=== PATIENT | female | born 1940 | race African-American/Black ===

== ENCOUNTER → 2019-11-24 | Outpatient (CLI) | payer MEDICARE, MEDICAID ==
[~2019-11-24] VITALS: Ht 162.6 cm; Wt 74.5 kg
[~2019-11-24] MED LIST: LIDOCAINE 1% INJ 20 ML 20 ML VIAL INJ ONE; LIDOCAINE 1% INJ 20 ML 20 ML VIAL ONE
--- NOTE | 2019-11-24 18:38 | Diagnostic Imaging Report ---
INDICATION: Left breast calcifications. EXAMINATION: Patient presents for stereotactic biopsy. PROCEDURE: Patient was brought to the stereotactic suite and placed in a chair in a sitting upright position. The left breast was positioned craniocaudal. The calcifications in the upper central left breast were stereotactically targeted. The skin of the left breast was prepped and draped in the usual sterile fashion. A small amount of 1% lidocaine was utilized for local anesthesia. An 8-gauge stereotactic needle was advanced and placed per stereotactic coordinates. Four core biopsies were obtained with the vacuum-assisted device. Specimen radiograph was obtained demonstrating numerous calcifications within samples 1, 2, 3 and 4. The marker clip was then deployed. Needle was withdrawn and hemostasis was obtained. 2D CC and MLO mammography was performed demonstrating a marker clip in the upper central left breast. All images were viewed on a dedicated workstation. IMPRESSION: Successful stereotactic biopsy of left breast calcifications utilizing a vacuum-assisted device. Pathology results are currently pending. Dictated by: Dictated on workstation # [id number]
== END ==
LOC: RAD 09:49
PROVIDERS: ATTEND Surgery
DX: R92.1 Mammographic calcification found on diagnostic imaging of breast (principal)
CPT/HCPCS: 19081

== ENCOUNTER 2022-05-12 09:58 | Emergency (ER) | payer MEDICARE, MEDICAID ==
[~2022-05-12] VITALS: Ht 162 cm; Wt 63.0 kg
[2022-05-12 10:12] LABS: BASOPHILS % (AUTO) 1 % (0-10); EOSINOPHILS # (AUTO) 0.1 10^3/uL (0.0-0.3); EOSINOPHILS % (AUTO) 2 % (0-10); HEMATOCRIT 38 % (35-52); HEMOGLOBIN 12.2 g/dL (11.5-16.0); LYMPHOCYTES # (AUTO) 1.2 10^3/uL (1.0-4.0); LYMPHOCYTES % (AUTO) 19 % (12-44); MEAN CORPUSCULAR HEMOGLOBIN 27 pg (25-34); MEAN CORPUSCULAR HGB CONC 32 g/dL (32-36); MEAN CORPUSCULAR VOLUME 82 fL (80-99); MEAN PLATELET VOLUME 11.2 fL (9.0-12.2); MONOCYTES # (AUTO) 1.1 10^3/uL (0.0-1.0); MONOCYTES % (AUTO) 18 % (0-12); NEUTROPHILS # (AUTO) 3.8 10^3/uL (1.8-7.8); NEUTROPHILS % (AUTO) 60 % (42-75); PLATELET COUNT 179 10^3/uL (130-400); WHITE BLOOD COUNT 6.2 10^3/uL (4.3-11.0)
[2022-05-12 10:36] LABS: BILIRUBIN,TOTAL 0.4 MG/DL (0.1-1.0); CALCIUM 9.1 MG/DL (8.5-10.1); CREATININE SERUM 0.98 MG/DL (0.60-1.30); POTASSIUM 3.6 MMOL/L (3.6-5.0); TOTAL PROTEIN 7.3 GM/DL (6.4-8.2)
[2022-05-12 10:37] LABS: ALBUMIN 3.9 GM/DL (3.2-4.5)
[2022-05-12 10:46] VITALS: BP 160/68
[2022-05-12 10:58] LABS: BAND NEUTROPHILS 2 %; BASOPHILS % (MANUAL) 0 %; EOSINOPHILS % (MANUAL) 0 %; LYMPHOCYTES % (MANUAL) 19 %; MONOCYTES % (MANUAL) 18 %; NEUTROPHILS % (MANUAL) 61 %
--- NOTE | 2022-05-12 11:00 | ED General ---
General Chief Complaint: Glucose Problems Stated Complaint: HYPOGLYCEMIA Nursing Triage Note: Patient has been brought to ER by EMS with cc of low blood sugar. Per EMS blood sugar was 19 at home. Patient transported to ER for evaluation. Source of Information: Patient, Family History of Present Illness Date Seen by Provider: May 12, 2022 Time Seen by Provider: 09:58 Initial Comments 81-year-old female presenting with complaints of decreased responsiveness this morning. EMS was activated and found her to have a low blood sugar of 19 when they arrived. She was given an amp of D50 and sugar was brought up to the 160s. She was alert and responsive at that time. She initially told EMS that she took too much insulin last night. However after family arrived at the reported that she does not take insulin and had not eaten her supper last night. She has high blood pressure and takes medicine for that. They were unsure of her other medications. They also stated that she would need a note for work as she had been seen in the ER and her employer wanted her off for a week to give her a ch ance to recuperate. Patient denies having fever, chills, cough, pain with urination, diarrhea, nausea, vomiting, chest pain, headache. Severity: Severe Modifying Factors: improves with Medication (Amp of D50 corrected her sugar and became alert and responsive) Associated Systoms: No Chest Pain, No Cough, No Diaphoresis, No Fever/Chills, No Headaches; Loss of Appetite; No Malaise, No Nausea/Vomiting, No Rash, No Seizure, No Shortness of Air, No Syncope, No Weakness Allergies and Home Medications Allergies Coded Allergies: No Known Drug Allergies (Unverified , 11/24/19) Patient Home Medication List Home Medication List Reviewed: Yes Review of Systems Review of Systems Constitutional: No chills, No fever EENTM: no symptoms reported Respiratory: no symptoms reported Cardiovascular: no symptoms reported Gastrointestinal: no symptoms reported Genitourinary: no symptoms reported Musculoskeletal: no symptoms reported Skin: no symptoms reported Psychiatric/Neurological: See HPI Past [id number] Hx Patient Social History Tobacco Use?: No Use of E-Cig and/or Vaping dev: No Substance use?: No Alcohol Use?: No Past Medical History Surgery/Hospitalization HX: Diabetes Oral controlled, Hypertension Physical Exam Vital Signs Vital Signs - First Documented 05/12/22 10:11 Temp 36.4 Pulse 82 Resp 18 B/P (MAP) 98/72 (81) Pulse Ox 96 O2 Delivery Nasal Cannula Capillary Refill : Height, Weight, BMI Height: '" Weight: lbs. oz. kg; 24.00 BMI Method: General Appearance: No Apparent Distress, WD/WN HEENT: PERRL/EOMI, Pharynx Normal, Moist Mucous Membranes Neck: Full Range of Motion, Normal Inspection, Non Tender, Supple Respiratory: Chest Non Tender, Lungs Clear, Normal Breath Sounds, No Accessory Muscle Use, No Respiratory Distress Cardiovascular: Regular Rate, Rhythm, Normal Peripheral Pulses Gastrointestinal: Normal Bowel Sounds, No Pulsatile Mass, Non Tender, Soft Rectal: Deferred Extremity: Normal Capillary Refill, Normal Inspection, No Pedal Edema Neurologic/Psychiatric: Alert, Oriented x3, No Motor/Sensory Deficits, Normal Mood/Affect, software administrator II-XII Norm as Tested Skin: Normal Color, Warm/Dry Progress/Results/Core Measures Suspected Sepsis SIRS Temperature: Pulse: 82 Respiratory Rate: 18 Laboratory Tests 05/12/22 10:02: White Blood Count 6.2 Blood Pressure 98 /72 Mean: 81 Laboratory Tests 05/12/22 10:02: Creatinine 0.98, Platelet Count 179, Total Bilirubin 0.4 Results/Orders Lab Results Laboratory Tests Test 05/12/22 10:02 05/12/22 10:05 05/12/22 10:42 Range/Units White Blood Count 6.2 4.3-11.0 10^3/uL Red Blood Count 4.57 3.80-5.11 10^6/uL Hemoglobin 12.2 11.5-16.0 g/dL Hematocrit 38 35-52 % Mean Corpuscular Volume 82 80-99 fL Mean Corpuscular Hemoglobin 27 25-34 pg Mean Corpuscular Hemoglobin Concent 32 32-36 g/dL Red Cell Distribution Width 14.4 10.0-14.5 % Platelet Count 179 130-400 10^3/uL Mean Platelet Volume 11.2 9.0-12.2 fL Immature Granulocyte % (Auto) 0 % Neutrophils (%) (Auto) 60 42-75 % Lymphocytes (%) (Auto) 19 12-44 % Monocytes (%) (Auto) 18 H 0-12 % Eosinophils (%) (Auto) 2 0-10 % Basophils (%) (Auto) 1 0-10 % Neutrophils # (Auto) 3.8 1.8-7.8 10^3/uL Lymphocytes # (Auto) 1.2 1.0-4.0 10^3/uL Monocytes # (Auto) 1.1 H 0.0-1.0 10^3/uL Eosinophils # (Auto) 0.1 0.0-0.3 10^3/uL Basophils # (Auto) 0.0 0.0-0.1 10^3/uL Immature Granulocyte # (Auto) 0.0 0.0-0.1 10^3/uL Sodium Level 137 135-145 MMOL/L Potassium Level 3.6 3.6-5.0 MMOL/L Chloride Level 99 98-107 MMOL/L Carbon Dioxide Level 24 21-32 MMOL/L Anion Gap 14 5-14 MMOL/L Blood Urea Nitrogen 13 7-18 MG/DL Creatinine 0.98 0.60-1.30 MG/DL Estimat Glomerular Filtration Rate 58 BUN/Creatinine Ratio 13 Glucose Level 193 H 70-105 MG/DL Calcium Level 9.1 8.5-10.1 MG/DL Corrected Calcium 9.2 8.5-10.1 MG/DL Total Bilirubin 0.4 0.1-1.0 MG/DL Aspartate Amino Transf (AST/SGOT) 19 5-34 U/L Alanine Aminotransferase (ALT/SGPT) 10 0-55 U/L Alkaline Phosphatase 74 40-136 U/L Total Protein 7.3 6.4-8.2 GM/DL Albumin 3.9 3.2-4.5 GM/DL Glucometer 169 H 105 70-110 MG/DL My Orders Orders - SASHA SILVEIRA MD Comprehensive Metabolic Panel (05/12/22 10:03) Ed Iv/Invasive Line Start (05/12/22 10:03) Cbc With Automated Diff (05/12/22 10:03) Accucheck Stat ONCE (05/12/22 10:03) Manual Differential (05/12/22 10:02) Accucheck Stat ONCE (05/12/22 10:38) Vital Signs/I&O 05/12/22 10:11 Temp 36.4 Pulse 82 Resp 18 B/P (MAP) 98/72 (81) Pulse Ox 96 O2 Delivery Nasal Cannula Capillary Refill : Blood Pressure Mean: 81 Point of Care Testing Finger Stick Blood Glucose: 169 Progress Note #1: Progress Note Obtain Accu-Chek and check basic labs. Have her eat some crackers with peanut butter and orange juice with sugar in it to help bring up her glucose. Progress Note #2: Progress Note Labs are stable and no acute significant abnormality. Recheck of accucheck is 105. Will discharge to home to go eat a real meal since we do not have much here as there is no cafeteria or hospital here at the stand alone ED. Encouraged to eat regular meals and check back with clinic as they may need to adjust her medicines or dosing, especially if she keeps getting low sugars. Departure Impression Primary Impression: Hypoglycemia associated with diabetes Disposition: 01 HOME, SELF-CARE Condition: Improved Departure-Patient Inst. Decision time for Depature: 10:39 Referrals: ROMELIA NGO MD (PCP) Primary Care Physician Patient Instructions: Low Blood Sugar in People With Diabetes, Dealing with Low Blood Sugar from the Drugs You Take Add. Discharge Instructions: Make sure to eat a good breakfast to help keep your sugar up since it was low this morning. Check back with clinic for continued concerns about your diabetes and sugar levels. If low blood sugar are a recurring issue the clinic may need to adjust your medications or dosing. All discharge instructions reviewed with patient and/or family. Voiced understanding. Work/School Note: Work Release Form Date Seen in the Emergency Department: May 12, 2022 Return to Work: May 19, 2022 Restrictions: No Restrictions SASHA SILVEIRA MD May 12, 2022 11:00
== END 2022-05-12 10:48 | disposition home or self-care (01) ==
LOC: EDUNIT# 09:58 → ER FS 09:59
DX: E11.649 Type 2 diabetes mellitus with hypoglycemia without coma (principal)
CPT/HCPCS: 36415; 80053; 82947; 85007; 85027